=== PATIENT | female | born 2000 | race Caucasian/White ===

== ENCOUNTER 2019-08-18 00:51 | Emergency (ER) | payer SELFPAY ==
[2019-08-18 00:56] VITALS: BP 119/101; PULSE 92; RESP 16; TEMP 35.9; O2SAT 99; BMI 29.2
--- NOTE | 2019-08-18 01:07 | PC.NURSE ---
[facility] department being notified at this time
--- NOTE | 2019-08-18 01:35 | PC.NURSE ---
[facility] department present and in with pt doing report at this time.
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
[2019-08-18] MEDS: HYDROcodone-acetaminophen 7.5-325 mg Tablet 1 TAB PO (01:48)
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
[2019-08-18] MEDS: tetanus-diphtheria tox (adult) 0.5 mL SDV IM (02:11)
[2019-08-18 02:40] VITALS: BP 122/82; PULSE 68; RESP 18; O2SAT 99
== END 2019-08-18 02:44 | disposition home or self-care (01) ==
PROVIDERS: Emergency Provider Physician Assistant
DX: S41.111A Laceration without foreign body of right upper arm, initial encounter (principal); X99.1XXA Assault by knife, initial encounter; F17.210 Nicotine dependence, cigarettes, uncomplicated; Z23 Encounter for immunization
CPT/HCPCS: 12345; 73030; 90471; 90714; 99281; 99283